=== PATIENT | male | born 1995 | race Caucasian/White ===

== ENCOUNTER → 2018-03-28 | Outpatient (CLI) | payer OTHER ==
--- NOTE | 2018-03-28 16:19 | CONS ---
CONSULTATION This is a consultation note for sleep apnea. 23-year-old, morbidly obese boy coming in for sleep apnea evaluation. He has loud snoring and he has witnessed apneas and he feels exhausted and tired during the day. He is very much sleepy. He works in a grocery store. He also goes to school for [place] degree. He is waking up tired during the day and is having trouble paying attention and concentration. He goes to bed around 3:00 am, wakes up at 10:00 a.m. in the morning. He averages around 7 hours of sleep. He is gaining weight over the years and is up to 380 pounds and has gained around 40 pounds over the past 1 year. No restlessness in lower extremities. Grandfather has obstructive sleep apnea. No substance abuse. PAST MEDICAL HISTORY: Obesity. PAST SURGICAL HISTORY: Negative. DRUG ALLERGIES: Not known. OUTPATIENT MEDICATIONS: Bentyl. SOCIAL HISTORY: Nonsmoker. No history of alcohol. No history of IV drugs. FAMILY HISTORY: Grandfather has obstructive sleep apnea. REVIEW OF SYSTEMS: 12-point review of system was done. No nocturia. No grinding of the teeth. He is a nose breather. No anxiety or panic attacks. No palpitation. No heartburn. No sleepwalking or sleep talking. No sleep paralysis. No cataplexy. No hallucinations. PHYSICAL EXAMINATION: BP is 123/71, pulse 96, respirations 16, temperature 99.2, saturation 97% on room air. Weight is 409, height is 5 feet 10 inches, neck size is 22 inches. GENERAL APPEARANCE: Calm, comfortable. Head is atraumatic, normocephalic. NECK: Supple. Mallampati class IV. There is no goiter neck masses. LUNGS: Clear to auscultation. Diminished. HEART: Sounds. Regular rhythm. Normal S1, S2. No S3. No murmurs. ABDOMEN: Soft, nontender. No organomegaly. EXTREMITIES: No edema. No cyanosis or clubbing. NEUROLOGIC: Alert and oriented x3. There is a focal neurological deficit. PSYCHIATRIC: Negative for anxiety or depression. IMPRESSION: 1. Excessive hypersomnia with possible obstructive sleep apnea. Overall clinical suspicion is high. 2. Morbid obesity. BMI 57.9. 3. Loud snoring. PLAN: 1. Encourage weight loss. 2. Avoid driving especially when feeling drowsy or sleepy. 3. Overall suspicion for obstructive sleep apnea is high. We will proceed with a PSG and treat accordingly. MMODL / IJN: [id number] /
== END | disposition home or self-care (01) ==
LOC: SLEEP 14:34
PROVIDERS: ATTEND Internal Medicine Critical Care Medicine
DX: G47.10 Hypersomnia, unspecified (principal); R06.83 Snoring; E66.01 Morbid (severe) obesity due to excess calories; R29.818 Other symptoms and signs involving the nervous system; Z68.43 Body mass index [BMI] 50.0-59.9, adult; Z79.899 Other long term (current) drug therapy
CPT/HCPCS: 99211

== ENCOUNTER 2023-02-14 19:42 | Emergency (ER) | payer BC, OTHER ==
[2023-02-14 19:52] VITALS: RESP 18; TEMP 99
[2023-02-14] MEDS ORDERED: ORPHENADRINE 30 MG/ML 2 ML VIAL IM STA (20:03)
[2023-02-14] MEDS ORDERED: KETOROLAC 15 MG/ML 1 ML VIAL IM STA (20:03)
[2023-02-14] MEDS ORDERED: diphenhydrAMINE 50 MG/ML 1 ML VIAL IM STA (20:03)
[2023-02-14] MEDS ORDERED: LIDOCAINE 5% PATCH TOPICAL SCH (20:15)
[2023-02-14] MEDS ORDERED: HYDROmorphone 1 MG/ML 1 ML SYRINGE IM STA (21:13)
--- NOTE | 2023-02-14 21:16 | ED ---
Back Pain HPI - General Chief Complaint: Back Pain/Injury Stated Complaint: Back Pain,Weakness Time Seen by Provider: 02/14/23 19:55 Source: patient Limitations: no limitations - History of Present Illness Initial Comments: 27-year-old male history of chronic back pain presenting with chief complaint of lower back pain. He denies any new injury or trauma. No loss of bowel or b ladder control or saddle paresthesia. No dysuria, hematuria, fever, chills, nausea, vomiting. Patient does have history of herniated disks. No abdominal pain, chest pain, difficulty breathing. - Related Data Allergies Allergy/AdvReac Type Severity Reaction Status Date / Time No Known Allergies Allergy Verified 02/14/23 19:52 Review of Systems ROS Statement: Those systems with pertinent positive or pertinent negative responses have been documented in the HPI. ROS Other: All systems not noted in ROS Statement are negative. Past Medical History Additional Past Medical History / Comment(s): back pain History of Any Multi-Drug Resistant Organisms: None Reported Past Surgical History: No Surgical Hx Reported Past Psychological History: Anxiety, Depression Smoking Status: Never smoker Past Alcohol Use History: Rare Past Drug Use History: None Reported General Exam Limitations: no limitations General appearance: alert, in no apparent distress Head exam: Present: atraumatic, normocephalic, normal inspection Eye exam: Present: normal appearance, EOMI Neck exam: Present: normal inspection, full ROM Back exam: Present: normal inspection, paraspinal tenderness. Absent: vertebral tenderness Neurological exam: Present: alert, oriented X3, CN II-XII intact Psychiatric exam: Present: normal affect, normal mood Skin exam: Present: warm, dry, intact, normal color. Absent: rash Course Vital Signs 02/14/23 02/14/23 19:49 22:14 Temperature 99 F Pulse Rate 85 86 Respiratory 18 18 Rate Blood Pressure 123/80 126/85 O2 Sat by Pulse 100 96 Oximetry Medical Decision Making - Medical Decision Making Was pt. sent in by a medical professional or institution ([facility], [facility], urgent care, hospital, or senior living...) When possible be specific @ -No Did you speak to anyone other than the patient for history (EMS, parent, family, police, friend...)? What history was obtained from this source @ -No Did you review nursing and triage notes (agree or disagree)? Why? @ -I reviewed and agree with nursing and triage notes Were old charts reviewed (outside hosp., previous admission, EMS record, old EKG, old radiological studies, urgent care reports/EKG's, senior living records)? Report findings @ -No old charts were reviewed Differential Diagnosis (chest pain, altered mental status, abdominal pain women, abdominal pain men, vaginal bleeding, weakness, fever, dyspnea, syncope, headache, dizziness, GI bleed, back pain, seizure, CVA, palpatations, mental health, musculoskeletal)? @ - MDM Differential Back Pain: Strain, zoster, cauda equina syndrome, epidural abscess, vertebral osteomyelitis, discitis, fracture, subluxation, disc herniation, DJD, spinal stenosis, dissection, AAA, pancreatitis, peptic ulcer disease, pyelonephritis, kidney stone this is not meant to be an all-inclusive list. EKG interpreted by me (3pts min.). @ -As above X-rays interpreted by me (1pt min.). @ -None done CT interpreted by me (1pt min.). @ -None done U/S interpreted by me (1pt. min.). @ -None done What testing was considered but not performed or refused? (CT, X-rays, U/S, labs)? Why? @ -None What meds were considered but not given or refused? Why? @ -None Did you discuss the management of the patient with other professionals (professionals i.e. , PA, PROCESS PUMPER, lab, RT, psych nurse, geriatric social work professor, stack supervisor, teacher, combat information center officer, continuous pillowcase cutter)? Give summary @ -No Was smoking cessation discussed for >3mins.? @ -No Was critical care preformed (if so, how long)? @ -No Were there social determinants of health that impacted care today? How? (Homelessness, low income, unemployed, alcoholism, drug addiction, transportation, low edu. Level, literacy, decrease access to med. care, half-way, rehab)? @ -No Was there de-escalation of care discussed even if they declined (Discuss DNR or withdrawal of care, Hospice)? DNR status @ -No What co-morbidities impacted this encounter? (DM, HTN, Smoking, COPD, CAD, Cancer, CVA, ARF, Chemo, Hep., AIDS, mental health diagnosis, sleep apnea, morbid obesity)? @ -None Was patient admitted / discharged? Hospital course, mention meds given and r oute, prescriptions, significant lab abnormalities, going to OR and other pertinent info. @ -27-year-old male presenting with chief complaint of back pain. Pain is chronic in nature, no new injury or trauma. No red flag symptoms. He reports improvement after pain medication. Provided with referral to orthopedics. Follow-up with PCP. Report back to ER with any new or worsening symptoms. Discussed return parameters and answered all questions. Patient conveyed verbal understanding and agreed to the plan. I discussed this case in detail with my attending Dr. Feliciano Undiagnosed new problem with uncertain prognosis? @ -No Drug Therapy requiring intensive monitoring for toxicity (Heparin, Nitro, Insulin, Cardizem)? @ -No Were any procedures done? @ -No Diagnosis/symptom? @ -mechanical Back pain Acute, or Chronic, or Acute on Chronic? @ -Acute on chronic Uncomplicated (without systemic symptoms) or Complicated (systemic symptoms)? @ -Uncomplicated Side effects of treatment? @ -No Exacerbation, Progression, or Severe Exacerbation? @ -No Poses a threat to life or bodily function? How? (Chest pain, USA, AR, pneumonia, PE, COPD, DKA, ARF, appy, cholecystitis, CVA, Diverticulitis, Homicidal, Suicidal, threat to staff... and all critical care pts) @ -No Disposition Clinical Impression: Strain of lumbar region Disposition: HOME SELF-CARE Condition: Good Instructions (If sedation given, give patient instructions): Chronic Back Pain (DC), Lower Back Exercises (ED) Additional Instructions: Follow-up with PCP and orthopedics. Report back to ER if any new or worsening symptoms. Take Motrin and Tylenol as needed for pain control. Is patient prescribed a controlled substance at d/c from ED?: No Referrals: Gaye Vera PAC [Primary Care Provider] - 1-2 days Fran Espitia DO [Doctor of Osteopathic Medicine] - 1-2 days Time of Disposition: 22:00
[2023-02-14] MEDS ORDERED: ACET/COD 300 MG/30 MG STARTER PACK 6 TAB BTL PO STA (22:00)
[2023-02-14 22:15] VITALS: BP 126/85; PULSE 86
== END 2023-02-14 22:15 | disposition home or self-care (01) ==
LOC: EC 19:42
DX: S39.012A Strain of muscle, fascia and tendon of lower back, initial encounter (principal); X58.XXXA Exposure to other specified factors, initial encounter
CPT/HCPCS: 99283; 96372 ×4; J1200; J2360; J1170; J1885

== ENCOUNTER → 2023-11-29 | Outpatient (CLI) | payer OTHER ==
--- NOTE | 2023-11-29 09:19 | MR ---
EXAMINATION TYPE: MR lumbar spine wo con DATE OF EXAM: 11/29/2023 8:41 AM CLINICAL INDICATION:Male, 28 years old with history of M54.16 RADICULOPATHY, LUMBAR REGION; PHH, Radi culopathy, left leg pain x 3 months COMPARISON: None TECHNIQUE: Multi planar, multi sequence imaging was performed utilizing: T1-weighted, T2-weighted, a nd turbo inversion recovery imaging of the lumbar spine. IV Contrast: cc . (None if empty) FINDINGS: Alignment: The lumbar vertebral bodies have preserved heights and alignment. Cord: The conus medullaris and the distal spinal cord appear unremarkable with regards to their signa l intensity and morphology. Bones/Discs: Mild degeneration changes throughout the spine with osteophyte formation and facet joint arthropathy. Intervertebral disc signal is maintained. T12-L1: No evidence of significant spinal canal stenosis or neural foraminal stenosis. L1-L2: No evidence of significant spinal canal stenosis or neural foraminal stenosis. L2-L3: No evidence of significant spinal canal stenosis. Facet joint arthropathy mild bilateral neura l foraminal stenosis. L3-L4: No evidence of significant spinal canal stenosis. Facet joint arthropathy mild bilateral neura l foraminal stenosis. L4-L5: No evidence of significant spinal canal stenosis. Facet joint arthropathy mild bilateral neura l foraminal stenosis. L5-S1: No evidence of significant spinal canal stenosis. Facet joint arthropathy mild bilateral neura l foraminal stenosis. No significant spinal canal or neural foraminal stenosis in the remainder of the visualized levels. Other findings: None. IMPRESSION: No definitive evidence of disc herniation or significant spinal canal stenosis. Mild disc degeneration with associated osteoarthritic changes.
== END | disposition home or self-care (01) ==
LOC: RADMRIMAIN 07:20
PROVIDERS: ATTEND Neurological Surgery
DX: M51.16 Intervertebral disc disorders with radiculopathy, lumbar region (principal)
CPT/HCPCS: 72148

== ENCOUNTER → 2024-10-02 | Outpatient (CLI) | payer OTHER ==
[2024-10-02 14:58] VITALS: BP 130/76; PULSE 108; RESP 16; TEMP 98.7
--- NOTE | 2024-10-02 16:24 | P.SLEEP ---
History of Present Illness H&P Date: 10/02/24 Chief Complaint: ANNELIESE This is a 29-year-old male patient who is coming in to be reevaluated for sleep apnea. The patient is morbidly obese. The patient has a body mass index of 59. The patient was seen back in 2018 and at that time the patient was diagnosed having obstructive sleep apnea, moderate in severity with an AHI of 23. The patient was titrated to a CPAP pressure of 7 cm of water. The patient used the machine briefly and subsequently quit therapy and he [place] [facility] [place] Currently has a fianc. He has been told that he is snoring vigorously. His sleep is fragmented and the patient has frequent nocturnal arousals and the patient is also having excessive daytime tiredness and sleepiness. He is going to bed around midnight waking up 8 to 9 AM in the morning. He is feeling unrefreshed. No history of any motor vehicle accidents because of feeling drowsy or sleepy. No restlessness in lower extremities. No sleepwalking or sleep talking. No nighttime awakenings for chest pain or shortness of breath. No nocturnal heartburn. His Hermann score is 11. His weight has remained stable over the past 6 years and his current weight is 406 pounds with a body mass index of 59. No cardiac issues. No atrial fibrillation. No congestion or heart failure. No stroke. No myocardial infarction. Suffers from chronic back pain. 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 Review of Systems Constitutional: Reports daytime sleepiness, Reports fatigue Eyes: denies as per HPI, denies blurred vision, denies bulging eye, denies decreased vision, denies diplopia, denies discharge, denies dry eye, denies irritation, denies itching, denies pain, denies photophobia, denies loss of peripheral vision, denies loss of vision, denies tunnel vision/blind spots Ears: deny: decreased hearing, ear discharge, earache, tinnitus Ears, nose, mouth and throat: Reports as per HPI Breasts: absent: as per HPI, gynecomastia Cardiovascular: Reports as per HPI Respiratory: Reports as per HPI, Reports sleep apnea, Reports snoring Gastrointestinal: Reports as per HPI Genitourinary: Reports as per HPI Musculoskeletal: Reports as per HPI, Reports low back pain Musculoskeletal: absent: ankle pain, ankle stiffness, ankle swelling, as per HPI, elbow pain, elbow stiffness, elbow swelling, foot pain, foot stiffness, foot swelling, hand pain, hand stiffness, hand swelling, hip pain, hip stiffness, hip swelling, knee pain, knee stiffness, knee swelling, shoulder pain, shoulder stiffness, shoulder swelling, wrist pain, wrist stiffness, wrist swelling Integumentary: Reports as per HPI Neurological: Reports as per HPI Psychiatric: Reports change in sleep habits, Reports hypersomnia, Reports sleep disturbances Endocrine: Reports as per HPI, Reports fatigue Hematologic/Lymphatic: Reports as per HPI Past Medical History Past Medical History: Asthma, Sleep Apnea/CPAP/BIPAP Additional Past Medical History / Comment(s): back pain History of Any Multi-Drug Resistant Organisms: None Reported Past Surgical History: No Surgical Hx Reported Past Anesthesia/Blood Transfusion Reactions: No Reported Reaction Past Psychological History: Anxiety, Depression Smoking Status: Never smoker Past Alcohol Use History: Rare Past Drug Use History: None Reported - Past Family History Mother Family Medical History: Diabetes Mellitus Medications and Allergies Home Medications Medication Instructions Recorded Confirmed Type Celecoxib [CeleBREX] 200 mg PO BID 10/02/24 10/02/24 History Gabapentin [Neurontin] 300 mg PO QID 10/02/24 10/02/24 History HYDROcodone/APAP 10-325MG [[place] See Rx Instructions .ROUTE .COMPLEX 10/02/24 10/02/24 History 10-325] Allergies Allergy/AdvReac Type Severity Reaction Status Date / Time No Known Allergies Allergy Verified 02/14/23 19:52 Physical Exam Vitals: Vital Signs Temp Pulse Resp BP Pulse Ox 10/02/24 14:57 98.7 F 108 H 16 130/76 94 L Intake and Output 10/02/24 10/02/24 10/02/24 06:59 14:59 22:59 Other: Weight 184.159 kg The patient appeared well nourished and normally developed. Vital signs as documented. The patient is morbidly obese with a body mass index of 59.1 Head exam is unremarkable. No scleral icterus or corneal arcus noted. Neck is without jugular venous distension, thyromegaly, or carotid bruits. Carotid upstrokes are brisk bilaterally. The patient is a Mallampati class IV with crowding of the posterior pharynx Lungs are clear to auscultation and percussion. Cardiac exam reveals the PMI to be normally sized and situated. Rhythm is regular. First and second heart sounds normal. No murmurs, rubs or gallops. Abdominal exam reveals normal bowel sounds, no masses, no organomegaly and no aortic enlargement. Extremities are nonedematous and both femoral and pedal pulses are normal. Examination of the skin revealed no evidence of significant rashes, suspicious appearing nevi or other concerning lesions. Neurologically, the patient is awake and alert and the patient does not have any focal neurological deficit. Cranial nerves are essentially intact. Assessment and Plan Plan: obstructive sleep apnea, moderately severe at baseline with an AHI of 23 based on a sleep study that was done in 2018. The patient failed to comply with CPAP therapy. He is coming in with worsening symptoms. He seems to be much more somnolent and sleepy. He is still snoring and his sleep remains quite fragmented. He has managed to maintain his weight at 406 pounds and a body mass index of 59. No recent weight gain or weight loss. No substance abuse. No other major comorbidities. Morbid obesity with a BMI of 59.1 Chronic back pain Plan The patient seems to be much more committed to CPAP therapy. He is requesting a reevaluation. Will set up the patient with a PSG to be followed by CPAP titration. Will make further adjustments in his CPAP treatment to make the shalonda tment successful. Encourage weight loss Maintain regular sleep schedule Maintain good sleep hygiene measures Will continue to follow Time with Patient: Greater than 30 Sleep Note - Sleep Data ESS Total: 11 - Sleep Note Sleep Note: Temperature: 98.7 F Pulse Rate: 108 Respiratory Rate: 16 Blood Pressure: 130/76 SpO2: 94 Height: 5 ft 9.5 in Weight: 184.159 kg BMI: Neck Circumference: 22
== END ==
LOC: 3 N SLEEP 14:23
PROVIDERS: ATTEND Internal Medicine Critical Care Medicine
DX: G47.33 Obstructive sleep apnea (adult) (pediatric) (principal); M54.9 Dorsalgia, unspecified; R06.83 Snoring; E66.01 Morbid (severe) obesity due to excess calories; Z68.43 Body mass index [BMI] 50.0-59.9, adult
CPT/HCPCS: 99211

== ENCOUNTER 2024-11-05 19:44 | Outpatient (CLI) | payer OTHER ==
--- NOTE | 2024-11-14 12:20 | P.PCN ---
Date of Procedure: 11/05/24 Operative Findings: Polysomnography report History This is a 29-year-old male patient who is coming in to be reevaluated for sleep apnea. The patient is morbidly obese. The patient has a body mass index of 59. The patient was seen back in 2018 and at that time the patient was diagnosed having obstructive sleep apnea, moderate in severity with an AHI of 23. The patient was titrated to a CPAP pressure of 7 cm of water. The patient used the machine briefly and subsequently quit therapy and he returned his machine back to the [facility] [place]. Currently has a fianc. He has been told that he is snoring vigorously. His sleep is fragmented and the patient has frequent nocturnal arousals and the patient is also having excessive daytime tiredness and sleepiness. He is going to bed around midnight waking up 8 to 9 AM in the morning. He is feeling unrefreshed. No history of any motor vehicle accidents because of feeling drowsy or sleepy. No restlessness in lower extremities. No sleepwalking or sleep talking. No nighttime awakenings for chest pain or shortness of breath. No nocturnal heartburn. His [place] score is 11. His weight has remained stable over the past 6 years and his current weight is 406 pounds with a body mass index of 59. No cardiac issues. No atrial fibrillation. No congestion or heart failure. No stroke. No myocardial infarction. Suffers from chronic back pain. 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 Pertinent physical findings Weight is 406 pounds height is 5 feet 9 inches with a body mass index of 59.1 Technical description The patient was studied using a standard complex polysomnography protocol that included recording of the Lead II EKG, Central, occipital and frontal EEG, right and left outer canthus EOG, submental EMG, right and left anterior tibialis EMG, respiratory airflow by thermocouple and or pressure/flow transducer, respiratory efforts by abdominal and thoracic PVDF belts, oxygen saturation by cable oximetry. Position by observation synchronized the PSG. Equipment used: [employer]. Sleep architecture The total recording duration was 419 minutes. The total sleep time was 379.5 minutes. The wake after sleep onset time was 60 minutes. The overall sleep efficiency was 90.6%. The latency to sleep onset was 23 minutes. The latency to REM sleep was 242 minutes. The sleep architecture was characterized by 7.4% stage I, 80.8% stage II, 0% stage III and a total of 11.9% REM sleep. The total arousal index was 8.1 Respiratory summary There was a total of 87 obstructive events of which 1 was obstructive apnea, 0 was mixed apnea and 86 with obstructive hypopneas. No central apneas identified. The patient had an AHI of 13.4. The disease was worse during REM sleep with an AHI of 94.7 calculated to be during REM. Oxygenation analysis the baseline pulse ox was 95% while awake. Lowest oxygen saturation was 59% during REM sleep. The patient spent approximately 22 minutes of the sleep time below pulse ox of 89% accounting for 5.3% of the overall recording time Limb movement summary There was only 1 periodic limb movement with arousal with a PLM arousal index of 0.2 Sleep continuity The patient had total of 51 arousals with an arousal index of 8.1. Respiratory arousal index was 2.5 Cardiac summary Average heart rate was 75 with a minimum heart rate of 78 and a maximum heart rate of 85 Assessment Obstructive sleep apnea, mild in severity with an AHI of 13.4, significantly worse during REM sleep. Noted the patient has a previous history of obstructive sleep apnea, moderately severe at baseline with an AHI of 23 based on a sleep study that was done in 2018. The patient failed to comply with CPAP therapy. He is co having worsening symptoms. He seems to be much more somnolent and sleepy. He is still snoring and his sleep remains quite fragmented. He has managed to maintain his weight at 406 pounds and a body mass index of 59. No recent weight gain or weight loss. No substance abuse. No other major comorbidities. Morbid obesity with a BMI of 59.1 Chronic back pain Plan The patient seems to be much more committed to CPAP therapy. He is requesting a reevaluation. Will set up the patient for a CPAP titration. Will make further adjustments in his CPAP treatment to make the treatment successful. Encourage weight loss Maintain regular sleep schedule Maintain good sleep hygiene measures Will continue to follow
== END 2024-11-06 05:30 | disposition home or self-care (01) ==
LOC: 3 N SLEEP 19:44
PROVIDERS: ATTEND Internal Medicine Critical Care Medicine
DX: G47.33 Obstructive sleep apnea (adult) (pediatric) (principal); G89.29 Other chronic pain; E66.01 Morbid (severe) obesity due to excess calories; Z68.43 Body mass index [BMI] 50.0-59.9, adult
CPT/HCPCS: 95810

== ENCOUNTER 2024-12-20 19:38 | Outpatient (CLI) | payer OTHER ==
--- NOTE | 2024-12-24 23:54 | P.PCN ---
Date of Procedure: 12/20/24 Operative Findings: CPAP titration report Date of service is 12/20/2024 History This is a 29-year-old male patient who is coming in to be reevaluated for sleep apnea. The patient is morbidly obese. The patient has a body mass index of 59. The patient was seen back in 2018 and at that time the patient was diagnosed having obstructive sleep apnea, moderate in severity with an AHI of 23. The patient was titrated to a CPAP pressure of 7 cm of water. The patient used the machine briefly and subsequently quit therapy and he returned [place] [facility] [place] Currently has a fianc. He has been told that he is snoring vigorously. His sleep is fragmented and the patient has frequent nocturnal arousals and the patient is also having excessive daytime tiredness and sleepiness. He is going to bed around midnight waking up 8 to 9 AM in the morning. He is feeling unrefreshed. No history of any motor vehicle accidents because of feeling drowsy or sleepy. No restlessness in lower extremities. No sleepwalking or sleep talking. No nighttime awakenings for chest pain or shortness of breath. No nocturnal heartburn. His Colerain score is 11. His weight has remained stable over the past 6 years and his current weight is 406 pounds with a body mass index of 59. No cardiac issues. No atrial fibrillation. No congestion or heart failure. No stroke. No myocardial infarction. Suffers from chronic back pain. 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 Currently, he is unemployed. The patient underwent a screening polysomnography and the patient was diagnosed again to have obstructive sleep apnea, mild in severity with an AHI of 13.4. The patient is coming in for a CPAP titration study. Pertinent physical findings Weight is 406 pounds height is 5 feet 9 inches with a body mass index of 59.1 Technical description The patient was studied using a standard complex polysomnography protocol that included recording of the Lead II EKG, Central, occipital and frontal EEG, right and left outer canthus EOG, submental EMG, right and left anterior tibialis EMG, respiratory airflow by thermocouple and or pressure/flow transducer, respiratory efforts by abdominal and thoracic PVDF belts, oxygen saturation by cable oximetry. Position by observation synchronized the PSG. Equipment used: Fanmode. Stepwise CPAP titration was done to eliminate all obstructive respiratory events Sleep architecture The total recording duration was 46.5 minutes. The total sleep time was 369.5 minutes. The wake after sleep onset time was 21.5 minutes. Overall sleep efficiency was 90.9%. Latency to sleep onset was 14.5 minutes and latency to REM sleep was 102.0 minutes. The sleep architecture was characterized by 2.2% stage I, 76.5% stage II, 3.4% stage III and a total of 18% REM sleep. The total arousal index was 4.1 Respiratory summary The patient was started on CPAP therapy, initially at a CPAP pressure of 5 cm of water and the pressure was gradually increased to increments of 1 cm of water to reach a maximum CPAP pressure of 10 cm of water. This was a successful titration. All sleep stages were encountered including REM sleep. The patient was studied in nonsupine body position. At a target CPAP pressure of 7 cm of water, the patient had adequate control of her disease with elimination of the obstructive respiratory events with some management residual obstructive hypopneas. No significant desaturations and the patient was able to maintain a pulse ox above 90% at the target CPAP pressure of 10 cm of water. Sleep arousal events The patient had a total of 25 arousals with an index of 4.1. Respiratory arous al index was 0 Limb movements There was a total of 201 periodic limb and activity with an index of 32.6. There was also 1 periodic limb movement with arousal with an index of 0.2 Cardiac rates Average heart rate was 72 with a minimum heart rate of 69 and a maximum heart of 77 Assessment Obstructive sleep apnea, mild in severity with an AHI of 13.4, significantly worse during REM sleep. Noted the patient has a previous history of obstructive sleep apnea, moderately severe at baseline with an AHI of 23 based on a sleep study that was done in 2018. The patient failed to comply with CPAP therapy. He is co having worsening symptoms. He seems to be much more somnolent and sleepy. He is still snoring and his sleep remains quite fragmented. He has managed to maintain his weight at 406 pounds and a body mass index of 59. No recent weight gain or weight loss. No substance abuse. No other major comorbidities. The patient underwent a successful CPAP titration and there was adequate elimination of the obstructive respiratory events and the patient was able to maintain a pulse ox above 90% throughout her titration. Morbid obesity with a BMI of 59.1 Chronic back pain Plan The patient will be started on CPAP therapy at a pressure of 10 cm of water. The patient is going to be offered an AirFit F40 medium size fullface mask. Encourage weight loss Maintain regular sleep schedule Maintain good sleep hygiene measures Will continue to follow up and the patient will see me back in the office in 30 to 90 days to assess her clinical response and compliancy.
== END 2024-12-21 05:30 | disposition home or self-care (01) ==
LOC: 3 N SLEEP 19:38
PROVIDERS: ATTEND Internal Medicine Critical Care Medicine
DX: G47.33 Obstructive sleep apnea (adult) (pediatric) (principal); M54.9 Dorsalgia, unspecified; G89.29 Other chronic pain; E66.01 Morbid (severe) obesity due to excess calories; Z99.89 Dependence on other enabling machines and devices; Z68.43 Body mass index [BMI] 50.0-59.9, adult
CPT/HCPCS: 95811